=== PATIENT | male | born 1995 | race Caucasian/White ===

== ENCOUNTER 2019-05-05 02:12 | Emergency (ER) | payer OTHER ==
[~2019-05-05] VITALS: Ht 182.9 cm; Wt 67.5 kg
[2019-05-05 02:32] VITALS: BP 115/73
--- NOTE | 2019-05-05 02:46 | NUR ---
DISCUSSED PT STATUS WITH ONUR PERSON WHO INDICATED NO HEAD CT NEEDED AT THIS TIME.
--- NOTE | 2019-05-05 03:15 | NUR ---
PT ATTEMPTING TO UNPLUG COMPUTER " LOOKING FOR A CHARGING" PT INFORMED THE HOSPITAL PROPERTY IS NOT FOR PATIENT PERSONAL USE. PT BECAME NOTICABLY AGGITATED AND CALLED STAFF "JACKASSES", BUT ASKED TO STAY IN HOSPITAL BED FOR HIS OWN SAFETY BUT REFUSED. PT CONTINUED TO BE VERBALLY AGGRESSIVE AND WAS ASKED TO LEAVE THE HOSPITAL DUE TO STAFF SAFETY CONCERNS. PT ESCORTED OUT OF ED. MD AWARE PATIENT LEFT WITHOUT BEING SEEN.
== END 2019-05-05 03:18 | disposition left against medical advice (07) ==
LOC: ER 02:13
DX: Z04.3 Encounter for examination and observation following other accident (principal); Z53.21 Procedure and treatment not carried out due to patient leaving prior to being seen by health care provider; V49.88XA Car occupant (driver) (passenger) injured in other specified transport accidents, initial encounter; Y93.89 Activity, other specified; Y92.413 State road as the place of occurrence of the external cause; Y99.9 Unspecified external cause status

== ENCOUNTER 2019-10-22 12:28 | Emergency (ER) | payer BC, OTHER ==
[~2019-10-22] VITALS: Ht 182.9 cm; Wt 73.0 kg
[2019-10-22 13:05] LABS: BASOPHILS % (AUTO) 0.7 % (0-1); EOSINOPHILS # (AUTO) 0.1 X10'3 (0-0.9); EOSINOPHILS % (AUTO) 2.8 % (0-6); HEMATOCRIT 44.4 % (42.0-52.0); HEMOGLOBIN 15.3 g/dl (14.0-17.9); LYMPHOCYTES # (AUTO) 2.1 X10'3 (1.1-4.8); LYMPHOCYTES % (AUTO) 50.6 % (21-51); MEAN CORPUSCULAR HEMOGLOBIN 32.3 PG (27.0-31.0); MEAN CORPUSCULAR HGB CONC 34.4 g/dL (33.0-36.5); MEAN PLATELET VOLUME 7.5 FL (7.4-10.4); MONOCYTES # (AUTO) 0.5 X10'3 (0-0.9); MONOCYTES % (AUTO) 11.8 % (2-12); NEUTROPHILS # (AUTO) 1.4 X10'3 (1.8-7.7); NEUTROPHILS % (AUTO) 34.1 % (42-75); PLATELET COUNT 118 X10'3 (140-440); RED BLOOD COUNT 4.73 X10'6 (4.70-6.10); RED CELL DISTRIBUTION WIDTH 14.1 % (11.5-14.5); WHITE BLOOD COUNT 4.1 X10'3 (4.5-11.0)
[2019-10-22 13:23] LABS: ALANINE AMINOTRANSFERASE 112 U/L (12-78); ALBUMIN 4.6 G/DL (3.4-5.0); ALBUMIN/GLOBULIN RATIO 1.3 (1.1-1.5); ALKALINE PHOSPHATASE 58 IU/L (46-116); ANION GAP 9 (8-16); ASPARTATE AMINO TRANSFERASE 167 U/L (10-37); BILIRUBIN,TOTAL 0.6 MG/DL (0.1-1.0); BLOOD UREA NITROGEN 11 MG/DL (7-18); BUN/CREATININE RATIO 14.3 (5.4-32.0); CALCIUM 9.1 MG/DL (8.5-10.1); CHLORIDE 102 MMOL/L (99-107); CREATININE 0.77 MG/DL (0.60-1.10); GLUCOSE 129 MG/DL (70-104); LIPASE 423 U/L (73-393); POTASSIUM 3.5 MMOL/L (3.5-5.1); SODIUM 141 MMOL/L (135-145); TOTAL CARBON DIOXIDE 29.7 MMOL/L (24-32); TOTAL PROTEIN 8.2 G/DL (6.4-8.2); eGFR > 90 ML/MIN
[2019-10-22 13:27] LABS: CLARITY,URINE CLEAR (Clear); COLOR,URINE STRAW (Yellow); GLUCOSE, URINE NEGATIVE (Neg); KETONES,URINE NEGATIVE (Neg); LEUKOCYTE ESTERASE ,URINE NEGATIVE (Neg); NITRITES, URINE NEGATIVE (Neg); OCCULT BLOOD,URINE NEGATIVE (Neg); PROTEIN,URINE NEGATIVE (Neg); UA COLLECTION TYPE CLN CATCH MIDSTREAM; UROBILINOGEN,URINE 0.2 E.U/dL (0.2-1.0)
[2019-10-22 13:52] VITALS: BP 140/79
== END 2019-10-22 13:52 | disposition home or self-care (01) ==
LOC: ER 12:28
DX: R10.31 Right lower quadrant pain (principal); J45.909 Unspecified asthma, uncomplicated; F12.90 Cannabis use, unspecified, uncomplicated; Z98.890 Other specified postprocedural states
CPT/HCPCS: 36415; 80053; 81003; 83690; 85025; 99283

== ENCOUNTER 2019-12-25 12:42 | Emergency (ER) | payer BC ==
[~2019-12-25] VITALS: Ht 182.9 cm; Wt 72.7 kg
[2019-12-25 13:02] VITALS: BP 120/86
[2019-12-25 13:24] LABS: CLARITY,URINE CLEAR (Clear); COLOR,URINE YELLOW (Yellow); GLUCOSE, URINE NEGATIVE (Neg); KETONES,URINE NEGATIVE (Neg); LEUKOCYTE ESTERASE ,URINE NEGATIVE (Neg); NITRITES, URINE NEGATIVE (Neg); OCCULT BLOOD,URINE TRACE-INTACT (Neg); PROTEIN,URINE NEGATIVE (Neg); UROBILINOGEN,URINE 0.2 E.U/dL (0.2-1.0)
[2019-12-25 13:38] LABS: UA COLLECTION TYPE VOIDED
[2019-12-25 13:39] LABS: BACTERIA,URINE NONE SEEN /HPF (Neg); BASOPHILS # (AUTO) 0.1 X10'3 (0-0.2); BASOPHILS % (AUTO) 1.2 % (0-1); EOSINOPHILS # (AUTO) 0.1 X10'3 (0-0.9); EOSINOPHILS % (AUTO) 1.7 % (0-6); HEMATOCRIT 46.3 % (42.0-52.0); HEMOGLOBIN 15.7 g/dl (14.0-17.9); LYMPHOCYTES # (AUTO) 2.9 X10'3 (1.1-4.8); LYMPHOCYTES % (AUTO) 55.2 % (21-51); MEAN CORPUSCULAR HEMOGLOBIN 32.1 PG (27.0-31.0); MEAN CORPUSCULAR VOLUME 94.5 FL (78-98); MEAN PLATELET VOLUME 7.3 FL (7.4-10.4); MONOCYTES # (AUTO) 0.6 X10'3 (0-0.9); MONOCYTES % (AUTO) 11.4 % (2-12); NEUTROPHILS # (AUTO) 1.6 X10'3 (1.8-7.7); NEUTROPHILS % (AUTO) 30.5 % (42-75); PLATELET COUNT 114 X10'3 (140-440); RBC,URINE NONE SEEN /HPF (0-2); RED BLOOD COUNT 4.89 X10'6 (4.70-6.10); RED CELL DISTRIBUTION WIDTH 14.1 % (11.5-14.5); SQUAMOUS EPITHELIAL CELL,UR NONE SEEN /LPF (FEW); WBC,URINE NONE SEEN /HPF (0-4); WHITE BLOOD COUNT 5.3 X10'3 (4.5-11.0)
[2019-12-25 13:43] LABS: ALANINE AMINOTRANSFERASE 153 U/L (12-78); ALBUMIN 4.5 G/DL (3.4-5.0); ALBUMIN/GLOBULIN RATIO 1.3 (1.1-1.5); ALKALINE PHOSPHATASE 74 IU/L (46-116); ANION GAP 14 (8-16); ASPARTATE AMINO TRANSFERASE 268 U/L (10-37); BILIRUBIN,TOTAL 0.5 MG/DL (0.1-1.0); BLOOD UREA NITROGEN 11 MG/DL (7-18); BUN/CREATININE RATIO 13.6 (5.4-32.0); CALCIUM 8.9 MG/DL (8.5-10.1); CHLORIDE 99 MMOL/L (99-107); CREATININE 0.81 MG/DL (0.60-1.10); GLUCOSE 179 MG/DL (70-104); LIPASE 582 U/L (73-393); POTASSIUM 3.7 MMOL/L (3.5-5.1); SODIUM 138 MMOL/L (135-145); eGFR > 90 ML/MIN
[2019-12-25] MEDS ORDERED: normal saline 1000ML IV soln IVB ONE (16:45)
[2019-12-25 18:14] LABS: TOTAL CELLS COUNTED 100
[2019-12-25 18:16] LABS: PLATELET ESTIMATE NORMAL
[2019-12-25] MEDS ORDERED: ONDA4TAB6 PO (23:41)
[2019-12-25] MEDS ORDERED: TRAM50TA2 PO (23:41)
== END 2019-12-25 19:31 | disposition home or self-care (01) ==
LOC: ER 12:43
DX: R10.9 Unspecified abdominal pain (principal); Z53.21 Procedure and treatment not carried out due to patient leaving prior to being seen by health care provider
CPT/HCPCS: 36415; 80053; 81001; 83690; 85025

== ENCOUNTER 2019-12-25 20:12 | Emergency (ER) | payer BC ==
[~2019-12-25] VITALS: Ht 193 cm; Wt 81.8 kg
[2019-12-25] MEDS ORDERED: ondansetron/PF 4mg/2ml inj IV ONE (21:35)
[2019-12-25] MEDS ORDERED: folic acid 1mg/0.2ml inj IV ONE (21:35)
[2019-12-25] MEDS ORDERED: thiamine 100mg/ml 2ml inj. IV ONE (21:35)
[2019-12-25] MEDS ORDERED: normal saline 1000ML IV soln IVB ONE (21:35)
[2019-12-25 22:35] LABS: HEMATOCRIT 45.6 % (42.0-52.0); HEMOGLOBIN 15.5 g/dl (14.0-17.9); LYMPHOCYTES # (AUTO) 1.4 X10'3 (1.1-4.8); NEUTROPHILS # (AUTO) 1.3 X10'3 (1.8-7.7); WHITE BLOOD COUNT 3.1 X10'3 (4.5-11.0)
[2019-12-25 22:36] LABS: EOSINOPHILS % (AUTO) 0.6 % (0-6); LYMPHOCYTES % (AUTO) 44.3 % (21-51); MEAN CORPUSCULAR HEMOGLOBIN 32.4 PG (27.0-31.0); MEAN CORPUSCULAR VOLUME 95.3 FL (78-98); MONOCYTES # (AUTO) 0.4 X10'3 (0-0.9); MONOCYTES % (AUTO) 11.5 % (2-12); NEUTROPHILS % (AUTO) 42.6 % (42-75); PLATELET COUNT 96 X10'3 (140-440); RED BLOOD COUNT 4.78 X10'6 (4.70-6.10); RED CELL DISTRIBUTION WIDTH 14.4 % (11.5-14.5)
[2019-12-25 22:55] LABS: ALANINE AMINOTRANSFERASE 137 U/L (12-78); ALBUMIN 4.4 G/DL (3.4-5.0); ALBUMIN/GLOBULIN RATIO 1.3 (1.1-1.5); ALKALINE PHOSPHATASE 63 IU/L (46-116); ANION GAP 15 (8-16); ASPARTATE AMINO TRANSFERASE 238 U/L (10-37); BILIRUBIN,TOTAL 0.4 MG/DL (0.1-1.0); BLOOD UREA NITROGEN 9 MG/DL (7-18); BUN/CREATININE RATIO 13.4 (5.4-32.0); CALCIUM 8.6 MG/DL (8.5-10.1); CHLORIDE 105 MMOL/L (99-107); CREATININE 0.67 MG/DL (0.60-1.10); GLUCOSE 106 MG/DL (70-104); LIPASE 975 U/L (73-393); POTASSIUM 3.7 MMOL/L (3.5-5.1); SODIUM 146 MMOL/L (135-145); TOTAL CARBON DIOXIDE 25.9 MMOL/L (24-32); TOTAL PROTEIN 7.7 G/DL (6.4-8.2); eGFR > 90 ML/MIN
[2019-12-25 23:11] LABS: CLARITY,URINE CLOUDY (Clear); COLOR,URINE YELLOW (Yellow); GLUCOSE, URINE NEGATIVE (Neg); KETONES,URINE NEGATIVE (Neg); LEUKOCYTE ESTERASE ,URINE NEGATIVE (Neg); NITRITES, URINE NEGATIVE (Neg); OCCULT BLOOD,URINE TRACE-INTACT (Neg); PROTEIN,URINE >=300 mg/dl (Neg)
[2019-12-25 23:21] LABS: UA COLLECTION TYPE CLN CATCH MIDSTREAM
[2019-12-25 23:24] LABS: AMORPHOUS PHOSPHATES 3+; BACTERIA,URINE NONE SEEN /HPF (Neg); MUCUS STRANDS MODERATE /LPF (Neg); RBC,URINE NONE SEEN /HPF (0-2); SQUAMOUS EPITHELIAL CELL,UR NONE SEEN /LPF (FEW); WBC,URINE 0-4 /HPF (0-4)
[2019-12-25 23:25] LABS: CELLULAR CAST 0-4 /LPF (NEGATIVE)
[2019-12-25 23:38] LABS: ETHANOL 0.451 GM/DL (0.0-0.010)
[2019-12-25] MEDS ORDERED: TRAM50TA2 PO (23:41)
[2019-12-25] MEDS ORDERED: ONDA4TAB6 PO (23:41)
[2019-12-26 00:32] VITALS: BP 127/89
== END 2019-12-26 00:30 | disposition home or self-care (01) ==
LOC: ER 20:12
DX: K85.20 Alcohol induced acute pancreatitis without necrosis or infection (principal); F10.929 Alcohol use, unspecified with intoxication, unspecified; R10.84 Generalized abdominal pain; R11.0 Nausea; J45.909 Unspecified asthma, uncomplicated; F12.90 Cannabis use, unspecified, uncomplicated; Z98.890 Other specified postprocedural states; Z72.89 Other problems related to lifestyle; Z79.899 Other long term (current) drug therapy
CPT/HCPCS: 36415; 80053; 80320; 81001; 83690; 85025; 96374; 96375; 99284; J2405; J3411; J3490; J7030

== ENCOUNTER 2019-12-29 14:40 | Emergency (ER) | payer BC ==
[~2019-12-29] VITALS: Ht 182.9 cm; Wt 70.0 kg
[~2019-12-29 14:40] MED LIST: ONDA4TAB6 PO; TRAM50TA2 PO
[2019-12-29 15:06] VITALS: BP 139/88
== END 2019-12-29 17:00 | disposition left against medical advice (07) ==
LOC: ER 14:40
DX: N50.811 Right testicular pain (principal); Z53.21 Procedure and treatment not carried out due to patient leaving prior to being seen by health care provider

== ENCOUNTER 2019-12-30 08:29 | Emergency (ER) | payer BC ==
[~2019-12-30] VITALS: Ht 183.5 cm; Wt 65.9 kg
[2019-12-30 09:39] LABS: BASOPHILS % (AUTO) 0.2 % (0-1); EOSINOPHILS % (AUTO) 0 % (0-6); HEMATOCRIT 44.8 % (42.0-52.0); HEMOGLOBIN 15.4 g/dl (14.0-17.9); LYMPHOCYTES # (AUTO) 0.6 X10'3 (1.1-4.8); MEAN CORPUSCULAR HEMOGLOBIN 32.6 PG (27.0-31.0); MEAN CORPUSCULAR HGB CONC 34.4 g/dL (33.0-36.5); MEAN CORPUSCULAR VOLUME 94.7 FL (78-98); MEAN PLATELET VOLUME 8.1 FL (7.4-10.4); MONOCYTES # (AUTO) 0.8 X10'3 (0-0.9); MONOCYTES % (AUTO) 12.2 % (2-12); NEUTROPHILS # (AUTO) 4.9 X10'3 (1.8-7.7); NEUTROPHILS % (AUTO) 77.6 % (42-75); PLATELET COUNT 108 X10'3 (140-440); RED BLOOD COUNT 4.73 X10'6 (4.70-6.10); RED CELL DISTRIBUTION WIDTH 14.3 % (11.5-14.5); WHITE BLOOD COUNT 6.3 X10'3 (4.5-11.0)
[2019-12-30 09:46] LABS: ALANINE AMINOTRANSFERASE 139 U/L (12-78); ALBUMIN 4.9 G/DL (3.4-5.0); ALBUMIN/GLOBULIN RATIO 1.3 (1.1-1.5); ALKALINE PHOSPHATASE 75 IU/L (46-116); ANION GAP 24 (8-16); ASPARTATE AMINO TRANSFERASE 172 U/L (10-37); BILIRUBIN,TOTAL 1.3 MG/DL (0.1-1.0); BLOOD UREA NITROGEN 17 MG/DL (7-18); BUN/CREATININE RATIO 18.3 (5.4-32.0); CHLORIDE 94 MMOL/L (99-107); CREATININE 0.93 MG/DL (0.60-1.10); GLUCOSE 97 MG/DL (70-104); LIPASE 495 U/L (73-393); POTASSIUM 3.3 MMOL/L (3.5-5.1); SODIUM 135 MMOL/L (135-145); TOTAL CARBON DIOXIDE 16.7 MMOL/L (24-32); TOTAL PROTEIN 8.7 G/DL (6.4-8.2); eGFR > 90 ML/MIN
[2019-12-30 10:08] VITALS: BP 121/80
[2019-12-30] MEDS ORDERED: pantoprazole 40 MG vial IV ONE (10:10)
[2019-12-30] MEDS ORDERED: mag hydrox/Alum hydrox/simeth 30ml oral suspension PO ONE (10:10)
[2019-12-30] MEDS ORDERED: LIDOcaine Viscous 15ml cup TP ONE (10:10)
[2019-12-30] MEDS ORDERED: ondansetron/PF 4mg/2ml inj IV ONE (10:10)
== END 2019-12-30 11:21 | disposition home or self-care (01) ==
LOC: ER 08:30
DX: R10.9 Unspecified abdominal pain (principal); N50.811 Right testicular pain; R11.10 Vomiting, unspecified; F10.10 Alcohol abuse, uncomplicated; J45.909 Unspecified asthma, uncomplicated; F12.90 Cannabis use, unspecified, uncomplicated; Z98.890 Other specified postprocedural states; Z72.89 Other problems related to lifestyle; Z79.899 Other long term (current) drug therapy; Y90.9 Presence of alcohol in blood, level not specified
CPT/HCPCS: 36415; 80053; 83690; 85025; 96374; 96375; 99284; C9113; J2405

== ENCOUNTER 2020-11-06 19:13 | Emergency (ER) | payer BC, MEDICAID ==
[~2020-11-06] VITALS: Ht 182.9 cm; Wt 64.1 kg
[~2020-11-06 19:13] MED LIST changes: -TRAM50TA2 PO
[2020-11-06] MEDS ORDERED: normal saline 1000ML IV soln IVB ONE (20:25)
[2020-11-06 21:57] VITALS: BP 114/66
== END 2020-11-06 21:58 | disposition home or self-care (01) ==
LOC: ER 19:13
DX: T40.1X1A Poisoning by heroin, accidental (unintentional), initial encounter (principal); J45.909 Unspecified asthma, uncomplicated; F17.200 Nicotine dependence, unspecified, uncomplicated; F12.90 Cannabis use, unspecified, uncomplicated; F15.90 Other stimulant use, unspecified, uncomplicated; F11.90 Opioid use, unspecified, uncomplicated; Z72.89 Other problems related to lifestyle; Z56.0 Unemployment, unspecified; Z79.899 Other long term (current) drug therapy; Z98.890 Other specified postprocedural states; Y92.89 Other specified places as the place of occurrence of the external cause
CPT/HCPCS: 96360; 99284; J7030